=== PATIENT | female | born 1990 | race African-American/Black ===

== ENCOUNTER 2023-11-06 13:06 | Observation (INO) | payer OTHER ==
[2023-11-06] MEDS ORDERED: ASPI-498 OR (15:11)
[2023-11-06] MEDS ORDERED: PREN-96 PO (15:11)
== END 2023-11-06 15:23 | disposition home or self-care (01) ==
LOC: LDRP 13:06 → UNDOADMOB 13:06 → LDRP 13:13
PROVIDERS: ADMIT Obstetrics & Gynecology; ATTEND Obstetrics & Gynecology
DX: O47.02 False labor before 37 completed weeks of gestation, second trimester (principal); O30.042 Twin pregnancy, dichorionic/diamniotic, second trimester; O26.872 Cervical shortening, second trimester; Z3A.21 21 weeks gestation of pregnancy
CPT/HCPCS: 59025; 76805; 81002; 94760; G0378

== ENCOUNTER 2023-12-27 13:25 | Observation (INO) | payer MEDICAID ==
[~2023-12-27] VITALS: Ht 165.1 cm; Wt 81.6 kg
[~2023-12-27 13:25] MED LIST: ASPI-498 OR; PREN-96 PO
[2023-12-27] MEDS: TERBUTALINE SULFATE 1 MG/ML 1ML VIAL SC SCH (13:55)
[2023-12-27] MEDS: LACTATED RINGER'S 1,000 ML IV ONE (14:01)
[2023-12-27] MEDS: BETAMETHASONE ACET (30mg/5ml) 5ml Vial 6mg/ml IM ONE (14:19)
[2023-12-27 14:59] LABS: Basophils # (auto) 0 10 ^3/uL (0-0.2); Basophils % (auto) 0.1 % (0.0-2.0); Eosinophils # (auto) 0 10 ^3/uL (0-0.8); Eosinophils % (auto) 0.2 % (0.0-7.0); Hemoglobin 12.3 g/dL (12.2-16.2); Lymphocytes # (auto) 2.2 10 ^3/uL (0.4-5.4); Lymphocytes % (auto) 19.8 % (10.0-50.0); Mean Corpuscular Hemoglobin 29.8 pg (28.0-32.0); Mean Corpuscular Hgb Conc. 33.2 g/dL (32.0-36.0); Mean Corpuscular Volume 89.9 fL (80.0-100.0); Monocytes # (auto) 0.8 10 ^3/uL (0-1.3); Monocytes % (auto) 7.5 % (0.0-12.0); Neutrophils # (auto) 7.9 10 ^3/uL (1.6-8.6); Neutrophils % (auto) 72.4 % (37.0-80.0); Red Blood Cells 4.12 10^6/uL (4.0-5.20); Red Cell Distribution Width 14.5 % (11.8-14.3); White Blood Cell 10.9 10^3/uL (4.4-10.8)
[2023-12-27 15:14] LABS: INR 0.96 (0.9-1.15); Partial Thromboplastin Time 26.4 SEC (24.5-34.5); Prothrombin Time 10.2 sec (9.3-11.8)
[2023-12-27 15:19] LABS: Alanine Aminotransferase 10 U/L (7-40); Albumin 3.6 g/dL (3.2-4.8); Alkaline Phosphatase 107 U/L (46-116); Anion Gap 8 (5-15); Aspartate Aminotransferase 9 U/L (13-40); Blood Urea Nitrogen 6 mg/dL (9-23); Calcium 9.1 mg/dL (8.7-10.4); Carbon Dioxide 22 mmol/L (20-30); Chloride 106 mmol/L (98-107); Glucose 95 mg/dL (74-106); Potassium 3.9 mmol/L (3.5-5.1); Sodium 136 mmol/L (136-145)
[2023-12-27 15:20] LABS: Bilirubin, Total 0.4 mg/dL (0.2-1.0); Total Protein 6.2 g/dL (5.7-8.2)
[2023-12-27 15:49] LABS: Amphetamine Screen, Urine Neg (NEGATIVE); Barbiturate Scree,Urine Neg (NEGATIVE); Benzodiazephine Screen, Urine Neg (NEGATIVE); Cannabinoid Screen, Urine Pos (NEGATIVE); Cocaine Screen, Urine Neg (NEGATIVE); Opiate Scree,Urine Neg (NEGATIVE); Phencyclidine Screen, Urine Neg (NEGATIVE)
== END 2023-12-27 15:31 | disposition home or self-care (01) ==
LOC: LDRP 13:25
PROVIDERS: ADMIT Obstetrics & Gynecology; ATTEND Obstetrics & Gynecology
DX: O30.003 Twin pregnancy, unspecified number of placenta and unspecified number of amniotic sacs, third trimester (principal); O99.891 Other specified diseases and conditions complicating pregnancy; M54.9 Dorsalgia, unspecified; O26.893 Other specified pregnancy related conditions, third trimester; R10.9 Unspecified abdominal pain; R11.0 Nausea; Z3A.33 33 weeks gestation of pregnancy; Z79.899 Other long term (current) drug therapy; Z98.890 Other specified postprocedural states
CPT/HCPCS: 36415; 59025; 80053; 80307; 81002; 85025; 85610; 85730; 86592; 86803; 86850; 86900; 86901; 94760; 96360; 96372; G0378; J0702; J3105

== ENCOUNTER 2023-12-28 14:25 | Observation (INO) | payer MEDICAID ==
[~2023-12-28] VITALS: Ht 167.6 cm; Wt 72.6 kg
[2023-12-28] MEDS: BETAMETHASONE ACET (30mg/5ml) 5ml Vial 6mg/ml IM ONE (15:03)
== END 2023-12-28 15:31 | disposition home or self-care (01) ==
LOC: LDRP 14:25
PROVIDERS: ADMIT Obstetrics & Gynecology; ATTEND Obstetrics & Gynecology
DX: O47.03 False labor before 37 completed weeks of gestation, third trimester (principal); O30.003 Twin pregnancy, unspecified number of placenta and unspecified number of amniotic sacs, third trimester; Z3A.33 33 weeks gestation of pregnancy
CPT/HCPCS: 59025; 81002; 94760; 96372; G0378

== ENCOUNTER 2024-02-19 11:10 | Inpatient (IN) | payer MEDICAID ==
[2024-02-19] VITALS (16 sets, daily range): BP systolic 136–157; BP diastolic 76–86; PULSE 42–64; RESP 12–18; TEMP 98–98.2; O2SAT 97–100
[~2024-02-19] VITALS: Ht 165.1 cm; Wt 84.4 kg
[2024-02-19] MEDS ORDERED: LACTATED RINGER'S 1,000 ML IV SCH (12:00)
[2024-02-19 12:27] LABS: Urine Bacteria FEW /hpf (None Seen); Urine Blood Negative /uL (Negative); Urine Clarity Clear (Clear); Urine Color Light-Yellow (Yellow); Urine Mucus FEW (None Seen); Urine Protein, UAD TRACE (Negative); Urine Specific Gravity 1.014 (1.001-1.035); Urine Urobilinogen Normal (Negative); Urine WBC 1 /hpf (0 - 5); Urine pH 6.5 (5.0-9.0)
[2024-02-19 12:38] LABS: Alanine Aminotransferase 10 U/L (7-40); Albumin 3.6 g/dL (3.2-4.8); Alkaline Phosphatase 155 U/L (46-116); Anion Gap 6 (5-15); Aspartate Aminotransferase 10 U/L (13-40); BUN/Creatinine Ratio 8.9 (10.0-20.0); Bilirubin, Total 0.3 mg/dL (0.2-1.0); Blood Urea Nitrogen 7 mg/dL (9-23); Calcium 9.6 mg/dL (8.7-10.4); Carbon Dioxide 19 mmol/L (20-30); Chloride 109 mmol/L (98-107); Glucose 77 mg/dL (74-106); Potassium 3.9 mmol/L (3.5-5.1); Sodium 134 mmol/L (136-145); Total Protein 6.1 g/dL (5.7-8.2)
[2024-02-19] MEDS ORDERED: MORPHINE SULF PF 5 MG/10 ML VIAL ONE (12:38)
[2024-02-19] MEDS ORDERED: KETOROLAC TROMETH 30 MG/ML 1ML VIAL ONE (12:38)
[2024-02-19] MEDS ORDERED: OXYTOCIN 10UNIT/ML 1ML VIAL ONE (12:38)
[2024-02-19] MEDS ORDERED: fentaNYL CITRATE 100 MCG/2 ML VL ONE (12:38)
[2024-02-19] MEDS ORDERED: GLYCOPYRROLATE 0.2 MG/ML 1ML VIAL ONE (12:38)
[2024-02-19] MEDS ORDERED: ONDANSETRON HCL 4 MG/2 ML VIAL ONE (12:38)
[2024-02-19 12:41] LABS: Basophils # (auto) 0.1 10 ^3/uL (0-0.2); Basophils % (auto) 1.2 % (0.0-2.0); Eosinophils # (auto) 0 10 ^3/uL (0-0.8); Eosinophils % (auto) 0.1 % (0.0-7.0); Hematocrit 36.6 % (36.0-46.0); Hemoglobin 12.1 g/dL (12.2-16.2); Lymphocytes # (auto) 1.4 10 ^3/uL (0.4-5.4); Lymphocytes % (auto) 14.3 % (10.0-50.0); Mean Corpuscular Hemoglobin 29.3 pg (28.0-32.0); Mean Corpuscular Hgb Conc. 33.1 g/dL (32.0-36.0); Mean Corpuscular Volume 88.3 fL (80.0-100.0); Monocytes # (auto) 0.8 10 ^3/uL (0-1.3); Monocytes % (auto) 7.9 % (0.0-12.0); Neutrophils # (auto) 7.6 10 ^3/uL (1.6-8.6); Neutrophils % (auto) 76.5 % (37.0-80.0); Nucleated Red Blood Cells % 0.2 %; Platelet Count (auto) 225 10^3/uL (140-450); Red Blood Cells 4.14 10^6/uL (4.0-5.20); Red Cell Distribution Width 14.4 % (11.8-14.3); White Blood Cell 9.9 10^3/uL (4.4-10.8)
[2024-02-19 12:44] LABS: Amphetamine Screen, Urine Neg (NEGATIVE); Protein, Urine 25.5 mg/dL (0.0-11.9)
[2024-02-19 12:45] LABS: Barbiturate Scree,Urine Neg (NEGATIVE); Benzodiazephine Screen, Urine Neg (NEGATIVE); Cocaine Screen, Urine Neg (NEGATIVE); Creatinine, Urine 93.56 mg/dL (30.0-125.0); Urine Protein/Creatinine Ratio 0.27
[2024-02-19 12:46] LABS: Cannabinoid Screen, Urine Neg (NEGATIVE); Opiate Scree,Urine Neg (NEGATIVE); Phencyclidine Screen, Urine Neg (NEGATIVE)
[2024-02-19 13:09] LABS: Uric Acid 6.4 mg/dL (3.1-7.8)
[2024-02-19 13:12] LABS: INR 0.92 (0.9-1.15); Partial Thromboplastin Time 28.2 SEC (24.5-34.5); Prothrombin Time 9.8 sec (9.3-11.8)
[2024-02-19] MEDS: ceFAZolin 2 GM/D5W50ml 50 ML IV ONE (13:30)
[2024-02-19] MEDS ORDERED: MEPERIDINE HCL (25 MG/ML) 1ML VIAL ONE (14:21)
[2024-02-19] MEDS ORDERED: ONDANSETRON HCL 4 MG/2 ML VIAL IV PRN (15:00)
[2024-02-19] MEDS ORDERED: NALOXONE HCL 0.4 MG/ML VIAL IV PRN (15:00)
[2024-02-19] MEDS ORDERED: DexAMETHasone SOD PHOS 10MG/1ML VIAL INJ IV PRN (15:00)
[2024-02-19] MEDS: LACTATED RINGER'S 1,000 ML IV SCH (16:00)
[2024-02-19] MEDS: MAGNESIUM SULFATE 100 ML IV ONE (16:18)
[2024-02-19] MEDS: MAGNESIUM SULFATE 40MG/ML 1,000 ML IV SCH (16:34)
[2024-02-19] MEDS: diphenhdrAMINE HCL 50 MG/1 ML VL IV PRN (20:56)
[2024-02-19] MEDS: ceFAZolin 1GM/50ML 50 ML IV SCH (21:27)
[2024-02-19] MEDS: ACETAMINOPHEN IV 1000 MG/100ML (10MG/ML) IV SCH (22:02)
[2024-02-20] VITALS (33 sets, daily range): BP systolic 124–157; BP diastolic 68–92; PULSE 60–79; RESP 17–18; TEMP 97.9–98.8; O2SAT 96–100
[2024-02-20] MEDS: KETOROLAC TROMETH 30 MG/ML 1ML VIAL IV PRN (05:03)
[2024-02-20 05:22] LABS: Protein, Urine < 6.0 mg/dL (0.0-11.9)
[2024-02-20 05:24] LABS: Creatinine, Urine 16.33 mg/dL (30.0-125.0); Urine Protein/Creatinine Ratio 0.37
[2024-02-20 05:28] LABS: Alkaline Phosphatase 121 U/L (46-116); Aspartate Aminotransferase 15 U/L (13-40); BUN/Creatinine Ratio 6.3 (10.0-20.0); Bilirubin, Total 0.2 mg/dL (0.2-1.0); Blood Urea Nitrogen 6 mg/dL (9-23); Calcium 7.8 mg/dL (8.7-10.4); Carbon Dioxide 22 mmol/L (20-30); Glucose 107 mg/dL (74-106); Total Protein 5.1 g/dL (5.7-8.2); Uric Acid 6.7 mg/dL (3.1-7.8)
[2024-02-20 06:32] LABS: Basophils # (auto) 0 10 ^3/uL (0-0.2); Basophils % (auto) 0.2 % (0.0-2.0); Eosinophils # (auto) 0 10 ^3/uL (0-0.8); Eosinophils % (auto) 0.2 % (0.0-7.0); Hematocrit 29.9 % (36.0-46.0); Lymphocytes % (auto) 9.3 % (10.0-50.0); Mean Corpuscular Hemoglobin 29.4 pg (28.0-32.0); Mean Corpuscular Hgb Conc. 33.6 g/dL (32.0-36.0); Mean Corpuscular Volume 87.5 fL (80.0-100.0); Monocytes # (auto) 0.7 10 ^3/uL (0-1.3); Monocytes % (auto) 6.2 % (0.0-12.0); Neutrophils # (auto) 9.5 10 ^3/uL (1.6-8.6); Neutrophils % (auto) 84.1 % (37.0-80.0); Nucleated Red Blood Cells % 0.1 %; Platelet Count (auto) 184 10^3/uL (140-450); Red Blood Cells 3.41 10^6/uL (4.0-5.20); Red Cell Distribution Width 14.4 % (11.8-14.3); White Blood Cell 11.2 10^3/uL (4.4-10.8)
[2024-02-20 06:36] LABS: Anion Gap 8 (5-15); Chloride 106 mmol/L (98-107); Potassium 3.8 mmol/L (3.5-5.1); Sodium 136 mmol/L (136-145)
[2024-02-20 06:38] LABS: Alanine Aminotransferase < 9 U/L (7-40)
[2024-02-20 08:06] LABS: RPR Non Reactive (Non Reactive)
[2024-02-20] MEDS: HYDROcodone-ACET 5/325MG TAB PO PRN (16:33)
[2024-02-20] MEDS: SIMETHICONE 80 MG CHEWABLE TABLET PO SCH (18:00)
[2024-02-20 18:10] LABS: Hepatitis B Core Total AB Negative (Negative)
[2024-02-20 19:30] LABS: Hepatitis A Total Antibody Positive (Negative); Hepatitis B Core IgM Negative
[2024-02-20 19:31] LABS: Hepatitis B Surface Antibody Positive (Negative); Hepatitis B Surface Antigen Negative (Negative); Hepatitis C Antibody Negative (Negative)
[2024-02-20] MEDS: IBUPROFEN 800 MG TAB PO PRN (22:02)
[2024-02-21 03:00] VITALS: BP 135/69; PULSE 75; RESP 18; TEMP 98.2; O2SAT 98
[2024-02-21 07:08] VITALS: BP 138/71; PULSE 71; RESP 16; TEMP 98.6; O2SAT 99
[2024-02-21] MEDS ORDERED: IBUP-1455 PO (09:11)
[2024-02-21] MEDS ORDERED: HYDR-4902 PO (09:11)
[2024-02-21] MEDS: MILK OF MAGNESIA 30ML SUSP PO SCH (10:00)
[2024-02-21 10:49] LABS: Basophils # (auto) 0 10 ^3/uL (0-0.2); Basophils % (auto) 0.3 % (0.0-2.0); Eosinophils # (auto) 0 10 ^3/uL (0-0.8); Eosinophils % (auto) 0.3 % (0.0-7.0); Hematocrit 32.1 % (36.0-46.0); Hemoglobin 10.4 g/dL (12.2-16.2); Lymphocytes # (auto) 1.8 10 ^3/uL (0.4-5.4); Lymphocytes % (auto) 15.7 % (10.0-50.0); Mean Corpuscular Hemoglobin 28.8 pg (28.0-32.0); Mean Corpuscular Hgb Conc. 32.6 g/dL (32.0-36.0); Mean Corpuscular Volume 88.4 fL (80.0-100.0); Monocytes # (auto) 0.8 10 ^3/uL (0-1.3); Monocytes % (auto) 7.2 % (0.0-12.0); Neutrophils # (auto) 8.9 10 ^3/uL (1.6-8.6); Neutrophils % (auto) 76.5 % (37.0-80.0); Nucleated Red Blood Cells % 0.1 %; Platelet Count (auto) 196 10^3/uL (140-450); Red Blood Cells 3.63 10^6/uL (4.0-5.20); Red Cell Distribution Width 14.4 % (11.8-14.3); White Blood Cell 11.6 10^3/uL (4.4-10.8)
[2024-02-21 11:09] LABS: Alanine Aminotransferase 10 U/L (7-40); Albumin 3.4 g/dL (3.2-4.8); Alkaline Phosphatase 124 U/L (46-116); Anion Gap 7 (5-15); Aspartate Aminotransferase 16 U/L (13-40); BUN/Creatinine Ratio 7.8 (10.0-20.0); Bilirubin, Total 0.3 mg/dL (0.2-1.0); Blood Urea Nitrogen 8 mg/dL (9-23); Calcium 8.5 mg/dL (8.7-10.4); Carbon Dioxide 23 mmol/L (20-30); Chloride 109 mmol/L (98-107); Glucose 78 mg/dL (74-106); Potassium 4.3 mmol/L (3.5-5.1); Sodium 139 mmol/L (136-145); Total Protein 5.7 g/dL (5.7-8.2)
[2024-02-21 11:21] VITALS: BP 143/63; PULSE 65; RESP 16; TEMP 98.6; O2SAT 99
[2024-02-21] MEDS: DOCUSATE CALCIUM 240 MG CAP PO SCH (13:35)
[2024-02-21 15:15] VITALS: BP 124/64; PULSE 70; RESP 16; TEMP 98.5; O2SAT 100
[2024-02-21 19:00] VITALS: BP 146/58; PULSE 67; RESP 20; TEMP 99; O2SAT 100
[2024-02-21] MEDS: DOCUSATE SOD 100 MG CAP PO SCH (21:48)
[2024-02-21 23:00] VITALS: BP 127/57; PULSE 68; RESP 16; TEMP 98.7; O2SAT 97
[2024-02-22] VITALS (11 sets, daily range): BP systolic 133–165; BP diastolic 61–107; PULSE 65–72; RESP 16–20; TEMP 97.8–98.9; O2SAT 97–98
[2024-02-22 06:37] LABS: Chloride 110 mmol/L (98-107); Potassium 4.3 mmol/L (3.5-5.1); Sodium 139 mmol/L (136-145)
[2024-02-22 06:38] LABS: Anion Gap 7 (5-15); Carbon Dioxide 22 mmol/L (20-30)
[2024-02-22 06:43] LABS: BUN/Creatinine Ratio 9.9 (10.0-20.0); Blood Urea Nitrogen 9 mg/dL (9-23); Glucose 74 mg/dL (74-106)
[2024-02-22] MEDS: LABETALOL HCL 200 MG TAB PO SCH (08:12)
[2024-02-22] MEDS ORDERED: DOCUSATE CALCIUM 240 MG CAP PO SCH (10:00)
[2024-02-22 11:07] LABS: Treponema Pallidum Ab LC Non Reactive (Non Reactive)
[2024-02-22] MEDS: HYDROcodone-ACET 5/325MG TAB PO PRN (22:02)
[2024-02-23 03:00] VITALS: BP 138/70; PULSE 70; RESP 18; TEMP 98.2; O2SAT 96
[2024-02-23 06:56] VITALS: BP 153/76; PULSE 71; RESP 16; TEMP 98.4; O2SAT 98
[2024-02-23] MEDS: BISACODYL 10 MG RECT SUPP PR PRN (07:23)
[2024-02-23 09:49] VITALS: BP 133/62; PULSE 79; RESP 18
[2024-02-23] MEDS ORDERED: LABE200T33 PO (10:26)
[2024-02-23 10:57] VITALS: BP 143/59; PULSE 76; RESP 18; TEMP 97.9; O2SAT 97
== END 2024-02-23 13:30 | disposition home or self-care (01) | DRG 540 ==
LOC: OBSVTOIN 11:10 → LDRP 11:10
PROVIDERS: ADMIT Obstetrics & Gynecology; ATTEND Obstetrics & Gynecology
PROC: 0UB90ZZ Excision of Uterus, Open Approach (ICD-10-PCS; 2024-02-19)
PROC: 10D00Z1 Extraction of Products of Conception, Low, Open Approach (ICD-10-PCS; principal; 2024-02-19 13:35)
DX: O14.14 Severe pre-eclampsia complicating childbirth (principal); O60.14X0 Preterm labor third trimester with preterm delivery third trimester, not applicable or unspecified; Z37.2 Twins, both liveborn; O99.354 Diseases of the nervous system complicating childbirth; B16.9 Acute hepatitis B without delta-agent and without hepatic coma; O30.043 Twin pregnancy, dichorionic/diamniotic, third trimester; O36.5930 Maternal care for other known or suspected poor fetal growth, third trimester, not applicable or unspecified; O34.13 Maternal care for benign tumor of corpus uteri, third trimester; O98.42 Viral hepatitis complicating childbirth; O62.2 Other uterine inertia; D25.2 Subserosal leiomyoma of uterus; G40.909 Epilepsy, unspecified, not intractable, without status epilepticus; Z3A.36 36 weeks gestation of pregnancy; Z91.199 Patient's noncompliance with other medical treatment and regimen due to unspecified reason
CPT/HCPCS: 36415; 59025; 76815; 80048; 80053; 80307; 81001; 81002; 82570; 83735; 84156; 84550; 85025; 85610; 85730; 86592; 86704; 86705; 86706; 86708; 86780; 86803; 86850; 86900; 86901; 87340; 94760; 94762; 96360; 96361; 96365; 96366; 96374; G0378; J0131; J1885; J2405